=== PATIENT | female | born 1965 | race Caucasian/White ===

== ENCOUNTER 2020-02-22 07:51 | Outpatient (CLI) | payer BC, SELFPAY ==
--- NOTE | ~2020-02-22 | CT_ITS ---
EXAMINATION: CT abdomen pelvis wo con DATE: 02/22/2020 08:29 INDICATION: Abdominal pain TECHNIQUE: Computed tomography (CT) of the abdomen and pelvis was performed without intravenous contr ast. The dose-length product was 1109.60 mGy-cm. Automated exposure control and iterative reconstruct ion technique were employed. COMPARISON: None. FINDINGS: Lung bases are unremarkable. Heart size normal. No significant pleural or pericardial effus ion. The liver, spleen, pancreas, adrenal glands are unremarkable. There are cholecystectomy clips. T here are multiple nonobstructing bilateral renal stones. No ureteral stones or hydronephrosis. Nonobstructive bowel gas pattern. No significant vascular abnormality. No lymphadenopathy. Uterus is retroverted. Mild lumbar spondylosis. No free air or free fluid. Small fat-containing umbilical herni a. IMPRESSION: 1. Nonobstructing bilateral nephrolithiasis. Reviewed, dictated and finalized at location B.
== END 2020-02-22 07:52 ==
LOC: MICIMG 07:52
PROVIDERS: PCP Nurse Practitioner Family; Visit Provider Nurse Practitioner Family
DX: N20.0 Calculus of kidney (principal)
CPT/HCPCS: 74176

== ENCOUNTER 2021-06-03 11:20 | Emergency (ER) | payer BC, SELFPAY ==
[2021-06-03 11:28] VITALS: BP 154/80; PULSE 83; RESP 20; TEMP 36.8; O2SAT 98
[2021-06-03 11:41] VITALS: BP 154/80; PULSE 83; RESP 20; TEMP 36.8; O2SAT 98
--- NOTE | 2021-06-03 11:47 | ED.DIZZY ---
HPI - Dizziness General Chief Complaint: Dizziness Stated Complaint: Dizziness/Vomiting Time Seen by Provider: 06/03/21 11:55 Source: patient Mode of arrival: ambulatory Limitations: no limitations History of Present Illness HPI Narrative: 55-year-old female presents with concern for dizziness. She reports the yesterday she began having a room spinning type dizziness elicited when she goes from a sitting to a standing position, turns her head from left to the right. She denies weakness in any extremity, difficulty swallowing, difficulty speaking. Reports normal gait. She denies headache. Reports she had a headache yesterday. She reports dizziness elicits nausea. She denies ear pain, nasal congestion or drainage. MD elicited complaint: dizziness Related Data Home Medications Medication Instructions Recorded Confirmed baclofen 5 mg PO TID 06/03/21 06/03/21 diazepam 5 mg PO TID PRN 06/03/21 06/03/21 gabapentin 300 mg PO DAILY 06/03/21 06/03/21 insulin aspart U-100 [Novolog 22 unit SUBCUT QID 06/03/21 06/03/21 PenFill U-100 Insulin] insulin detemir U-100 [Levemir 38 unit SUBCUT HS 06/03/21 06/03/21 U-100 Insulin] metoprolol tartrate 10 mg PO DAILY 06/03/21 06/03/21 Allergies Allergy/AdvReac Type Severity Reaction Status Date / Time morphine Allergy Nausea Verified 06/03/21 11:36 Review of Systems Review of Systems: CONSTITUTIONAL: Denies malaise, chills, sweats, or fever. EYES: Denies visual changes ENT: Denies rhinorrhea, congestion, sinus pain, otalgia or sore throat. CARDIOVASCULAR: Denies chest pain, palpitations, or edema. RESPIRATORY: Denies cough or dyspnea. GASTROINTESTINAL: Reports nausea, vomiting MUSCULOSKELETAL: Denies myalgia. NEUROLOGIC: Denies numbness, weakness, or headache. Reports room spinning dizziness PSYCHIATRIC: Denies anxiety or depression. All systems reviewed & are unremarkable except as noted in HPI and below PMFSH Comments At time of signature, agree with nursing past medical, surgical, social and family history. There is no relevant family history pertinent to the presenting complaint Exam Narrative: GENERAL: Well-appearing, well-nourished, and in no acute distress. HEAD: Normocephalic, atraumatic. EYES: PERRLA, sclera clear, and EOMI. No nystagmus. ENT: Nares clear, turbinates pink, no rhinorrhea or epistaxis. Mucous membranes moist. TM pearly trivedi with sharp light reflex bilaterally; no tragal tenderness. Oropharynx without erythema or lesions. Tonsils not enlarged and without exudate. NECK: Supple. No lymphadenopathy. No jugular venous distension, thyromegaly, or carotid bruits. Carotids were easily palpable bilaterally. CHEST: No respiratory distress. Speaks in full sentences. HEART: Regular rate and rhythm. No murmur heard. Normal peripheral pulses. EXTREMITIES: Grossly normal range of motion. No edema. Grossly normal strength and sensation. SKIN: Warm, dry, no visible rash. NEURO: Alert and oriented x3. No focal deficits. Cranial nerves II through XII grossly intact. No upper or lower extremity drift. Celina-Hallpike test positive PSYCH: Normal mood and affect Course Course Emergency Course: Discussed limited diagnostic capability at the [facility] with patient discussed seeking follow-up care for worsening symptoms. Patient is aware of likely diagnosis, understands and agrees to treatment plan. Anticipatory guidance given. Patient agrees to follow-up as directed and is aware of reasons to seek care at the emergency department. Portions of this record may have been created with voice recognition software Level of Care: Express Care Visit Vital Signs Vital signs: Vital Signs Temperature 98.3 F 06/03/21 11:28 Pulse Rate 83 06/03/21 11:28 Respiratory Rate 06/03/21 11:28 Blood Pressure 154/80 H 06/03/21 11:28 Pulse Oximetry 98 06/03/21 11:28 Temperature 98.3 F 06/03/21 11:41 Pulse Rate 83 06/03/21 11:41 Respiratory Rate 06/03/21 11:41 Blo
[2021-06-03 11:48] VITALS: BP 155/82; PULSE 87
[2021-06-03 11:51] VITALS: BP 156/86; PULSE 90
[2021-06-03 11:54] VITALS: BP 179/84; PULSE 95
== END 2021-06-03 12:13 | disposition home or self-care (01) ==
PROVIDERS: Emergency Provider Nurse Practitioner; PCP Nurse Practitioner Family
DX: H81.13 Benign paroxysmal vertigo, bilateral (principal); I10 Essential (primary) hypertension; E11.40 Type 2 diabetes mellitus with diabetic neuropathy, unspecified; F41.9 Anxiety disorder, unspecified
CPT/HCPCS: 99213; G0463